=== PATIENT | male | born 1980 | race African-American/Black ===

== ENCOUNTER 2016-09-30 20:22 | Emergency (ER) | payer MEDICAID ==
[~2016-09-30] VITALS: Ht 167.6 cm; Wt 114.0 kg
[2016-09-30] MEDS ORDERED: TRAMADOL 50MG TABLET PO ONE (21:45)
[2016-09-30] MEDS ORDERED: DIAZEPAM 5 MG TABLET PO ONE (22:15)
[2016-09-30] MEDS ORDERED: KETOROLAC 60MG/2ML VIAL IM ONE (22:45)
[2016-09-30 23:31] VITALS: BP 155/83
== END 2016-10-01 00:04 | disposition home or self-care (01) ==
LOC: ER 20:22
DX: M25.511 Pain in right shoulder (principal); I10 Essential (primary) hypertension
CPT/HCPCS: 73030; 96372; 99284; J1885; Z7610; A4565

== ENCOUNTER 2020-02-06 13:42 | Emergency (ER) | payer MEDICAID ==
[~2020-02-06] VITALS: Ht 167.6 cm; Wt 122.0 kg
[2020-02-06 13:49] VITALS: BP 159/87
[2020-02-06] MEDS ORDERED: ACETAMINOPHEN 325MG TABLET PO ONE (14:30)
[2020-02-06 16:27] LABS: CLARITY URINE CLEAR (CLEAR); COLOR URINE YELLOW (YELLOW); KETONES URINE TRACE (NEGATIVE); LEUKOCYTE ESTERASE URINE NEGATIVE (NEGATIVE); NITRITE URINE NEGATIVE (NEGATIVE); OCCULT BLOOD URINE NEGATIVE (NEGATIVE); PROTEIN URINE 2+ (NEGATIVE); SPECIFIC GRAVITY URINE 1.032 (1.005-1.030)
== END 2020-02-06 17:40 | disposition home or self-care (01) ==
LOC: ER 13:42
DX: N50.812 Left testicular pain (principal); I10 Essential (primary) hypertension
CPT/HCPCS: 76870; 81003; 93976; 99284

== ENCOUNTER 2022-04-10 07:48 | Emergency (ER) | payer MEDICAID ==
[~2022-04-10] VITALS: Ht 167.6 cm; Wt 109.0 kg
[2022-04-10] MEDS ORDERED: HYDROCODONE/ACETAMINOPHEN 5/325MG TABLET PO ONE (09:45)
[2022-04-10] MEDS ORDERED: HYDR-4001 MT (09:49)
[2022-04-10 09:52] VITALS: BP 172/99
== END 2022-04-10 10:53 | disposition home or self-care (01) ==
LOC: ER 07:48
DX: M54.9 Dorsalgia, unspecified (principal); I10 Essential (primary) hypertension
CPT/HCPCS: 99283

== ENCOUNTER 2023-09-03 07:19 | Emergency (ER) | payer MEDICAID, OTHER ==
[~2023-09-03] VITALS: Ht 167.6 cm; Wt 114.0 kg
[~2023-09-03 07:19] MED LIST: HYDR-4001 MT
[2023-09-03 07:39] VITALS: O2SAT 97
[2023-09-03] MEDS ORDERED: ERYT1OIN6 EACHEYE (08:25)
[2023-09-03 09:00] VITALS: BP 121/74; PULSE 86; RESP 16; TEMP 98.3
== END 2023-09-03 09:05 | disposition home or self-care (01) ==
LOC: ER 07:54
DX: H10.9 Unspecified conjunctivitis (principal); M79.651 Pain in right thigh
CPT/HCPCS: 99281